=== PATIENT | female | born 1950 | race Caucasian/White ===

== ENCOUNTER 2022-06-09 05:51 | Day surgery (SDC) | payer OTHER ==
[~2022-06-09] VITALS: Ht 152.4 cm; Wt 54.4 kg
[~2022-06-09 05:51] MED LIST: COZAAR100 MG PO; LEXAPRO5 MG PO; LIPITOR20 MG PO; NORVASC5 MG PO
== END 2022-06-09 14:30 | disposition home or self-care (01) ==
LOC: CIR.AMB 05:51
PROVIDERS: ATTEND Surgery
DX: K80.10 Calculus of gallbladder with chronic cholecystitis without obstruction (principal); Z20.822 Contact with and (suspected) exposure to COVID-19